=== PATIENT | female | born 1970 | race Caucasian/White ===

== ENCOUNTER → 2017-01-01 | Outpatient (CLI) | payer OTHER | LOC: FIMAGING 08:27 | PROVIDERS: ATTEND Internal Medicine Hematology & Oncology | DX: N64.4 Mastodynia (principal) | CPT/HCPCS: G0204 ==

== ENCOUNTER 2017-05-01 16:48 | Emergency (ER) | payer MEDICAID, OTHER ==
[2017-05-01] MEDS ORDERED: KETOROLAC 15 MG/1 ML SDV IM ONE (17:56)
[2017-05-01] MEDS ORDERED: LIDOCAINE 5% 1 EA PATCH TD ONE ×2 (17:56→19:54)
--- NOTE | 2017-05-01 18:00 | EDPHY ---
H & P Time Seen by Provider: 05/01/17 17:36 HPI/ROS: CHIEF COMPLAINT: Back pain HISTORY OF PRESENT ILLNESS: Patient had previous admission on 03/28/2012 for back pain similar to this. Last night at 9:30 a.m. she was trying to use her daughter's birthday present are and draw a special bath and she twisted her torso to run the bath while she was sitting on the toilet and developed severe back pain. This back pain has lasted since then, and is on the right lower back and radiates to her right leg but not all the way to the knee. It is worse with movement and with standing but not associated with incontinence or weakness or numbness in extremities or fever. Symptoms are severe and not relieved by ice and Aleve yesterday, half an Ativan tablet yesterday, and 3 Advil today. REVIEW OF SYSTEMS: Eye: no change in vision ENT: a little residual head cold, pain in her back when she sneezes Cardiac: no chest pain or syncope Pulmonary: no cough or SOB Abdomen: No incontinence, no abdominal pain, feels like she needs to have a bowel movement but can't Musculoskeletal: HPI Skin: no rash Neuro: no headache Constitutional: no fever : No incontinence A comprehensive 10 point review of systems is otherwise negative aside from elements mentioned in the history of present illness. PAST MEDICAL HISTORY: Includes ovarian cysts, migraines, pericarditis, appendix removed. Social history: Drove herself to the emergency department General Appearance: Alert and conversant, cooperative. Eyes: No scleral icterus. ENT, Mouth: Normal mucous membranes. Respiratory: Normal respiratory effort, breath sounds equal, lungs are clear to auscultation. Cardiovascular: Regular rate and rhythm. Gastrointestinal: Abdomen is soft and non tender. No pulsatile mass Neurological: Alert, cooperative. Straight leg raising positive on the right at 30 degrees. Toes downgoing bilaterally. No clonus. EHL strength 5/5 bilaterally. Patellar reflexes 2+ symmetric. Skin: Warm and dry, no rashes. Musculoskeletal: No midline spinal tenderness. She does have tenderness around the right sciatic notch. Psychiatric: Not agitated. Emergency Department course/MDM: Lidocaine patch and IM Toradol discussed with the patient and she would like to try that. Apparently in her admission in 2011 that is what really worked for her pain. She specifically does not want IV or oral narcotics. Patient does not have neurologic deficit to suggest neurological emergency. She feels like she just needs pain control which I think reasonable. 1844: still having same pain, recheck in another 30 minutes. She would like to try oral tramadol and Tylenol. Again she would like to specifically avoid opioid such as oxycodone morphine or Dilaudid. 2119: Patient would like to go home, is requesting tramadol prescription and lidocaine patch for the next couple of days. She is able to walk and feels a little bit better and wants to be discharged, which I think is reasonable. Smoking Status: Former smoker Constitutional: Initial Vital Signs Temperature (C) 36.7 C 05/01/17 16:51 Heart Rate 104 H 05/01/17 16:51 Respiratory Rate 18 05/01/17 16:51 Blood Pressure 112/81 H 05/01/17 16:51 O2 Sat (%) 98 05/01/17 16:51 O2 Delivery Mode Room Air Allergies/Adverse Reactions: morphine Allergy (Intermediate, Verified 11/17/15 07:52) ITCHY, WEIRD gluten Allergy (Verified 11/17/15 07:52) dairy Allergy (Uncoded 11/17/15 07:52) Home Medications: Medication Instructions Recorded Ondansetron Odt [Zofran Odt] 4 - 8 mg PO Q4PRN PRN #4 tab 03/10/16 Lidocaine 5% [Lidoderm 5% Patch 1 ea TD DAILY #4 patch 05/01/17 (*)] Tramadol HCl 50 mg PO Q12 #8 tablet 05/01/17 Medical Decision Making Differential Diagnosis: Differential considered including but not limited to renal colic, vascular problem, sciatica, spinal cord compression, cauda equina, herniated disc. - Data Points Medications Given: Discontinued Medications Acetaminophen (Tylenol) 1,000 mg PO EDNOW ONE Stop: 05/01/17 19:44 Last Admin: 05/01/17 19:56 Dose: 1,000 mg Ketorolac Tromethamine (Toradol) 30 mg IM EDNOW ONE Stop: 05/01/17 17:57 Last Admin: 05/01/17 18:01 Dose: 30 mg Lidocaine (Lidoderm 5%) 1 ea TD EDNOW ONE Stop: 05/01/17 17:57 Last Admin: 05/01/17 18:00 Dose: 1 ea Miscellaneous Information (Patch Removal) 1 ea TD DAILY21 WESLY Stop: 10/28/17 20:59 Last Admin: 05/01/17 21:29 Dose: Not Given Tramadol HCl (Ultram) 50 mg PO EDNOW ONE Stop: 05/01/17 19:44 Last Admin: 05/01/17 19:59 Dose: 50 mg Departure - Departure Disposition: Home, Routine, Self-Care Clinical Impression: Low back pain Qualifiers: Chronicity: acute Back pain laterality: right Sciatica presence: with sciatica Sciatica laterality: sciatica of right side Qualified Code(s): M54.41 - Lumbago with sciatica, right side Condition: Good Instructions: Acute Low Back Pain (ED) Referrals: Liz Du MD [Primary Care Provider] - As per Instructions Prescriptions: Lidocaine 5% [Lidoderm 5% Patch (*)] 1 ea TD DAILY #4 patch Tramadol HCl 50 mg PO Q12 #8 tablet
[2017-05-01] MEDS ORDERED: ACETAMINOPHEN 500 MG TAB PO ONE (19:43)
[2017-05-01] MEDS ORDERED: traMADol 50 MG TAB PO ONE (19:43)
[2017-05-01] MEDS ORDERED: PATCH REMOVAL 1 EA PATCH TD SCH (21:00)
[2017-05-01 21:37] VITALS: BP 99/99; PULSE 66; RESP 15; TEMP 97.7; O2SAT 95
== END 2017-05-01 21:44 | disposition home or self-care (01) ==
DX: M54.41 Lumbago with sciatica, right side (principal); Z87.891 Personal history of nicotine dependence
CPT/HCPCS: J1885

== ENCOUNTER → 2017-06-12 | Outpatient (CLI) | payer MEDICAID | LOC: FIMAGING 13:41 | PROVIDERS: ATTEND Internal Medicine Hematology & Oncology | DX: E04.1 Nontoxic single thyroid nodule (principal) ==

== ENCOUNTER 2017-11-04 15:58 | Emergency (ER) | payer MEDICAID ==
--- NOTE | 2017-11-04 16:20 | EDPHY ---
H & P Stated Complaint: Back spasms since yesterday;increased use of back (lifting) Time Seen by Provider: 11/04/17 16:20 - Personal History LMP (Females 10-55): 22-28 Days Ago Current Tetanus Diphtheria and Acellular Pertussis (TDAP): Yes Tetanus Vaccine Date: 12/12 - Medical/Surgical History Hx Asthma: No Hx Chronic Respiratory Disease: No Hx Diabetes: No Hx Cardiac Disease: No Hx Renal Disease: No Hx Cirrhosis: No Hx Alcoholism: No Hx HIV/AIDS: No Hx Splenectomy or Spleen Trauma: No Other PMH: cellulitis related sepsis 2006, ovarian cysts, BASAL migraines, adrenal, pericarditis, systemic inflammatory disease, fatigue, HERPES, back problems. APPY,TONSILS,ORTHO, urethra, lumpectomy. Abnormal EKG in 2012 that prompted a cardiac stress test that was negative per patient. I cannot find this study in the medical records. Difficult IV stick - Social History Smoking Status: Former smoker Constitutional: Initial Vital Signs Temperature (C) 36.9 C 11/04/17 16:05 Heart Rate 88 11/04/17 16:05 Respiratory Rate 18 11/04/17 16:05 Blood Pressure 103/74 11/04/17 16:05 O2 Sat (%) 99 11/04/17 16:05 O2 Delivery Mode Room Air Allergies/Adverse Reactions: morphine Allergy (Intermediate, Verified 11/04/17 16:03) ITCHY, WEIRD gluten Allergy (Verified 11/04/17 16:03) dairy Allergy (Uncoded 11/17/15 07:52) Home Medications: Medication Instructions Recorded traMADol [Ultram 50 mg (*)] 50 mg PO Q4 #20 tab 11/04/17 Medical Decision Making ED Course/Re-evaluation: CHIEF COMPLAINT: Back spasms HISTORY OF PRESENT ILLNESS: 47-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 She states that she was moving her house and although she had moved her issues lifting a number of things at [employer] and at her house. She felt some right-sided back pain. She has had SI joint issues on that side in the past several times. She has been in the hospital a couple of times when the spasm was significant. She has tried a couple of [id number] meds at home but the spasm is been getting worse today than even yesterday. She spoke to her doctor sent her in. She denies any radicular symptoms. She denies any fevers or chills. She denies any recent instrumentation of her back. She denies any bowel or bladder dysfunction. REVIEW OF SYSTEMS: A 10 point review of systems was performed and is negative with the exception of the elements mentioned in the history of present illness. PHYSICAL EXAM: HR, BP, O2 Sat, RR. Temp noted General Appearance: Alert, well hydrated, appropriate, and non-toxic appearing. Head: Atraumatic without scalp tenderness or obvious injury Eyes: Pupils equal, round, reactive to light and accommodation, EOMI, no trauma , no injection. Ears: Clear bilaterally, no perforation, normal landmarks Nose: Atraumatic, no rhinorrhea, clear. Throat: There is no erythema or exudates, no lesions, normal tonsils, mucus membranes moist. Neck: Supple, 2+ carotid upstroke, nontender, no lymphadenopathy. Respiratory: No retractions, no distress, no wheezes, and no accessory muscle use. Lungs are clear to auscultation bilaterally. Cardiovascular: Regular rate and rhythm, no murmurs, rubs, or gallops. Bilateral carotid, radial, dorsalis pedis, and posterior tibial pulses intact. Good capillary refill all extremities. Gastrointestinal: Abdomen is soft, nontender, non-distended, no masses, no rebound, no guarding, no peritoneal signs. Musculoskeletal: Pain over the right SI joint with movement or palpation. Otherwise, Normal active ROM of all extremities, atraumatic. Neurological: Alert, appropriate, and interactive. The patient has normal DTRs and non-focal cranial nerves, motor, sensory, and cerebellar exam. Skin: No rashes, good turgor, no nodules on palpation. Past medical history: Back spasms with sacroiliitis on the right Past surgical history: Noncontributory Family history: Noncontributory Social history: Single, daughter lives with her, just moved to [place], does not abuse tobacco drugs or alcohol, works as a therapist DIAGNOSTICS/PROCEDURES/CRITICAL CARE TIME: None indicated DIFFERENTIAL DIAGNOSIS: The differential diagnosis for the patient's back pain included but was not limited to musculo-skeletal pain, epidural abscess, herniated disk, spinal fracture, and intra-abdominal causes including urinary system. MEDICAL DECISION MAKING: This patient has fairly localized back spasm and severe right SI joint pain. She has no radiculopathy. She has no evidence of an epidural abscess a diskitis or a disc herniation. She does not want any narcotic analgesics this time but she has been helped in the past with Toradol. I have given her Toradol 60 mg IM. I will reassess her she would like to use tramadol at home and she does not like Vicodin or oxycodone. I will discharge this patient with tramadol and she is feeling much better. She will follow up with regular doctor. She does not want any steroids. - Data Points Medications Given: Discontinued Medications Ketorolac Tromethamine (Toradol) 60 mg IM EDNOW ONE Stop: 11/04/17 16:37 Last Admin: 11/04/17 16:45 Dose: 60 mg Tramadol HCl (Ultram) 50 mg PO EDNOW ONE Stop: 11/04/17 17:27 Last Admin: 11/04/17 17:30 Dose: 50 mg Departure - Departure Disposition: Home, Routine, Self-Care Clinical Impression: Back muscle spasm Back pain Qualifiers: Back pain location: low back pain Chronicity: acute Back pain laterality: unspecified Sciatica presence: without sciatica Qualified Code(s): M54.5 - Low back pain Condition: Good Instructions: Muscle Spasm (ED), Back Pain (ED) Additional Instructions: 1. Followup with a disability specialist within one week. 2. Return to the emergency department for severe pain, fever, numbness, difficulty walking, change in location or nature of pain or other concerns. 3. Use ibuprofen and Tylenol as directed. 4. Try using a heating pad. 5. Take Tramadol as prescribed. Referrals: Liz Du MD [Primary Care Provider] - As per Instructions Gera Chamberlain MD [Medical Doctor] - As per Instructions Prescriptions: traMADol [Ultram 50 mg (*)] 50 mg PO Q4 #20 tab
[2017-11-04] MEDS ORDERED: KETOROLAC 30 MG/1 ML SDV IM ONE (16:36)
[2017-11-04] MEDS ORDERED: traMADol 50 MG TAB PO ONE (17:26)
[2017-11-04 18:18] VITALS: BP 106/76
== END 2017-11-04 18:18 | disposition home or self-care (01) ==
DX: M62.830 Muscle spasm of back (principal); Z87.891 Personal history of nicotine dependence
CPT/HCPCS: J1885

== ENCOUNTER → 2018-01-01 | Outpatient (CLI) | payer MEDICAID | LOC: FIMAGING 12:28 | PROVIDERS: ATTEND Internal Medicine Hematology & Oncology | DX: Z12.31 Encounter for screening mammogram for malignant neoplasm of breast (principal) ==

== ENCOUNTER → 2018-01-08 | Outpatient (CLI) | payer MEDICAID ==
[~2018-01-08] MED LIST: GADOBUTROL 10 ML VIAL IVP ONE
== END ==
LOC: FIMAGING 12:17
PROVIDERS: ATTEND Internal Medicine Hematology & Oncology
DX: Z12.39 Encounter for other screening for malignant neoplasm of breast (principal); N62 Hypertrophy of breast; N60.89 Other benign mammary dysplasias of unspecified breast
CPT/HCPCS: 0159T; 77059; A9585; C8908

== ENCOUNTER → 2018-10-05 | Outpatient (CLI) | payer MEDICAID | LOC: BMCIMAGING 09:08 ==